=== PATIENT | male | born 1975 | race American Indian/Alaskan Native ===

== ENCOUNTER 2017-10-25 12:16 | Emergency (ER) | payer OTHER ==
[2017-10-25 13:24] VITALS: BP 149/40
[2017-10-25] MEDS ORDERED: TYLENOL ONE (13:26)
[2017-10-25] MEDS ORDERED: TYLENOL PO ONE (13:27)
== END 2017-10-25 17:46 | disposition left against medical advice (07) ==
LOC: ED 12:16
DX: M79.1 Myalgia (principal); R50.9 Fever, unspecified; Z53.21 Procedure and treatment not carried out due to patient leaving prior to being seen by health care provider